=== PATIENT | female | born 1940 | race Caucasian/White ===

== ENCOUNTER → 2016-10-09 | Outpatient (CLI) | payer OTHER, MEDICAID | LOC: FIMAGING 11:41 | PROVIDERS: ATTEND Family Medicine | DX: M50.321 Other cervical disc degeneration at C4-C5 level (principal); M50.023 Cervical disc disorder at C6-C7 level with myelopathy; M50.022 Cervical disc disorder at C5-C6 level with myelopathy ==

== ENCOUNTER → 2017-01-15 | Outpatient (CLI) | payer OTHER, MEDICAID | LOC: FIMAGING 09:06 | PROVIDERS: ATTEND Neurological Surgery | DX: M50.30 Other cervical disc degeneration, unspecified cervical region (principal) ==

== ENCOUNTER 2018-07-31 17:25 | Emergency (ER) | payer OTHER, MEDICAID ==
[2018-07-31] MEDS ORDERED: PROMETHAZINE HCL 25 MG/ML INJ IVP ONE (17:46)
[2018-07-31] MEDS ORDERED: NS 1,000 ML IV ONE ×2 (17:46→19:08)
[2018-07-31] MEDS ORDERED: PROMETHAZINE HCL 25 MG/ML INJ ONE (17:47)
--- NOTE | 2018-07-31 17:49 | EDPHY ---
H & P Stated Complaint: N/V/D since 2pm today. Time Seen by Provider: 07/31/18 17:37 HPI/ROS: CHIEF COMPLAINT: Nausea vomiting and diarrhea HISTORY OF PRESENT ILLNESS: Patient is a 77-year-old female who began having nausea vomiting and diarrhea around 2:00 a.m. This afternoon. She states that she felt well prior to that other than tired. She states that she has vomited 3 times and had 2 episodes of loose stool. None of them have been bloody. No fever. No history of abdominal surgery. She denies chest pain or shortness of breath. She denies significant abdominal pain or radiation. Very symptoms. No vaginal symptoms. Severity: Severe Modifying factors: No improvement with Zofran by EMS. REVIEW OF SYSTEMS: Constitutional: denies: chills, fever, recent illness, recent injury EENTM: denies: blurred vision, double vision, nose congestion Respiratory: denies: cough, shortness of breath Cardiac: denies: chest pain, irregular heart rate, lightheadedness, palpitations Gastrointestinal/Abdominal: See HPI Genitourinary: denies: dysuria, frequency, hematuria, pain Musculoskeletal: denies: joint pain, muscle pain Skin: denies: lesions, rash, jaundice, bruising Neurological: denies: headache, numbness, paresthesia, tingling, dizziness, weakness Hematologic/Lymphatic: denies: blood clots, easy bleeding, easy bruising Immunologic/allergic: denies: HIV/AIDS, transplant 10 systems reviewed and negative except as noted EXAM: GENERAL: Well-appearing, well-nourished and in no acute distress. HEAD: Atraumatic, normocephalic. EYES: Pupils equal round and reactive to light, extraocular movements intact, sclera anicteric, conjunctiva are normal. ENT: TMs normal, nares patent, oropharynx clear without exudates. Dry mucous membranes. NECK: Normal range of motion, supple without lymphadenopathy or JVD. LUNGS: Breath sounds clear to auscultation bilaterally and equal. No wheezes rales or rhonchi. HEART: Regular rate and rhythm without murmurs, rubs or gallops. ABDOMEN: Mild epigastric tenderness, palpable pulsatile aorta. No right upper quadrant or right lower quadrant tenderness. BACK: No CVA tenderness, no spinal tenderness, step-offs or deformities EXTREMITIES: Normal range of motion, no pitting or edema. No clubbing or cyanosis. NEUROLOGICAL: Cranial nerves II through XII grossly intact. Normal speech, normal gait. 5/5 strength, normal movement in all extremities, normal sensation , normal reflexes PSYCH: Normal mood, normal affect. SKIN: Warm, dry, normal turgor, no visible rashes or lesions. Source: Patient Exam Limitations: No limitations - Personal History Current Tetanus Diphtheria and Acellular Pertussis (TDAP): Unsure - Medical/Surgical History Hx Asthma: No Hx Chronic Respiratory Disease: No Hx Diabetes: No Hx Cardiac Disease: No Hx Renal Disease: No Hx Cirrhosis: No Hx Alcoholism: No Hx HIV/AIDS: No Hx Splenectomy or Spleen Trauma: No Other PMH: THYROID, HTN, STENOSIS, vertigo -- 2x per year - Family History Significant Family History: No pertinent family hx - Social History Smoking Status: Former smoker Alcohol Use: None Constitutional: Initial Vital Signs Temperature (C) 36.2 C 07/31/18 17:27 Heart Rate 56 L 07/31/18 17:27 Respiratory Rate 16 07/31/18 17:27 Blood Pressure 129/70 H 07/31/18 17:27 O2 Sat (%) 97 07/31/18 17:27 O2 Delivery Mode Room Air O2 (L/minute) 2 Allergies/Adverse Reactions: No Known Allergies Allergy (Unverified 02/04/14 23:17) Home Medications: Medication Instructions Recorded Levothyroxine [Synthroid 112 mcg 112 mcg PO DAILY06 06/28/10 (*)] amLODIPine BESYLATE [Norvasc 5 mg 5 mg PO BID 06/28/10 (*)] Herbals/Supplements -Info Only 1 ea PO DAILY 02/05/14 [place]-3 Fatty Acids [Fish Oil 1000 1,000 mg PO DAILY 02/05/14 mg (*)] Tears/Hypromellose [Natural 1 - 2 drops EACHEYE TID PRN 10/19/14 Balance] Meclizine HCl [Meclizine HCl 25 mg 25 mg PO BID #30 tab 10/20/14 (RX,OTC)] Promethazine HCl [Phenergan 25mg 25 mg PO Q6-8PRN PRN #20 tab 07/31/18 (RX)] Medical Decision Making - Diagnostics EKG Interpretation: An EKG obtained and was read and documented in trace view. Please see trace view for full reading and report. Sinus rhythm, no acute ischemic changes Imaging Results: Imaging Impressions Abdomen CT 07/31/18 17:46 Impression: 1. No significant abnormality within the abdomen and pelvis 2. No CT evidence of appendicitis, abscess or bowel obstruction. 3. Degenerative changes mid to lower lumbar spine. 4. Stable of small. 4. Stable central mesenteric nodes lower abdomen to upper pelvis. These are nonspecific. Findings discussed with Teto Curtis M.D. at 18:46 hour, 07/31/2018. Imaging: Discussed imaging studies w/ call center analyst Radiologist ED Course/Re-evaluation: Because it could palpate the patient's aorta I obtained a bedside ultrasound. There is no visible aneurysm. The aorta measures 1.4 cm. 7:00 a.m. the patient is feeling much better. No more nausea. Abdominal exam is benign. She forgot to collect the urine. Will continue to hydrate. Tongue slightly dry. 8:00 p.m. patient is feeling completely better. She is asking for prescription for Phenergan. She is eager to go. She has been drinking. She has been ambulating without difficulty. Her friend will drive her home. Abdominal exam remains benign. Differential Diagnosis: Partial list of the Differential diagnosis considered include but were not limited to; gastritis, biliary disease, aneurysm and although unlikely based on the history and physical exam, I also considered dissection, ischemia, volvulus, diverticulitis, peptic ulcer disease, acute coronary disease. - Data Points Laboratory Results: Laboratory Results 07/31/18 17:29 07/31/18 17:29 07/31/18 07/31/18 07/31/18 19:30 18:10 17:57 WBC RBC Hgb Hct MCV MCH MCHC RDW Plt Count MPV Neut % (Auto) Lymph % (Auto) Braxton % (Auto) Eos % (Auto) Baso % (Auto) Nucleat RBC Rel Count Absolute Neuts (auto) Absolute Lymphs (auto) Absolute Monos (auto) Absolute Eos (auto) Absolute Basos (auto) Absolute Nucleated RBC Immature Gran % Immature Gran # PT INR APTT VBG Lactic Acid 1.5 mmol/L mmol/L (0.7-2.1) Sodium Potassium Chloride Carbon Dioxide Anion Gap BUN Creatinine Estimated GFR Glucose Calcium Total Bilirubin Conjugated Bilirubin Unconjugated Bilirubin AST ALT Alkaline Phosphatase POC Troponin I 0.01 ng/mL ng/mL (0.00-0.08) Total Protein Albumin Lipase Urine Color COLORLESS Urine Appearance CLEAR Urine pH 9.0 H (5.0-7.5) Ur Specific [place] 1.015 (1.002-1.030) Urine Protein NEGATIVE (NEGATIVE) Urine Ketones NEGATIVE (NEGATIVE) Urine Blood NEGATIVE (NEGATIVE) Urine Nitrate NEGATIVE (NEGATIVE) Urine Bilirubin NEGATIVE (NEGATIVE) Urine Urobilinogen NEGATIVE EU EU (0.2-1.0) Ur Leukocyte Esterase NEGATIVE (NEGATIVE) Urine RBC 1-3 /hpf /hpf (0-3) Urine WBC 1-3 /hpf /hpf (0-3) Ur Epithelial Cells TRACE /lpf /lpf (NONE-1+) Urine Glucose NEGATIVE (NEGATIVE) 07/31/18 07/31/18 07/31/18 17:29 17:29 17:29 WBC 9.24 10^3/uL 10^3/uL (3.80-9.50) RBC 5.00 10^6/uL 10^6/uL (4.18-5.33) Hgb 15.4 g/dL g/dL (12.6-16.3) Hct 45.8 % % (38.0-47.0) MCV 91.6 fL fL (81.5-99.8) MCH 30.8 pg pg (27.9-34.1) MCHC 33.6 g/dL g/dL (32.4-36.7) RDW 13.5 % % (11.5-15.2) Plt Count 183 10^3/uL 10^3/uL (150-400) MPV 13.1 fL H fL (8.7-11.7) Neut % (Auto) 70.0 % % (39.3-74.2) Lymph % (Auto) 22.6 % % (15.0-45.0) Braxton % (Auto) 5.4 % % (4.5-13.0) Eos % (Auto) 1.3 % % (0.6-7.6) Baso % (Auto) 0.5 % % (0.3-1.7) Nucleat RBC Rel Count 0.0 % % (0.0-0.2) Absolute Neuts (auto) 6.46 10^3/uL 10^3/uL (1.70-6.50) Absolute Lymphs (auto) 2.09 10^3/uL 10^3/uL (1.00-3.00) Absolute Monos (auto) 0.50 10^3/uL 10^3/uL (0.30-0.80) Absolute Eos (auto) 0.12 10^3/uL 10^3/uL (0.03-0.40) Absolute Basos (auto) 0.05 10^3/uL 10^3/uL (0.02-0.10) Absolute Nucleated RBC 0.00 10^3/uL 10^3/uL (0-0.01) Immature Gran % 0.2 % % (0.0-1.1) Immature Gran # 0.02 10^3/uL 10^3/uL (0.00-0.10) PT 12.6 SEC SEC (12.0-15.0) INR 0.92 (0.83-1.16) APTT 27.5 SEC SEC (23.0-38.0) VBG Lactic Acid Sodium 139 mEq/L mEq/L (135-145) Potassium 3.4 mEq/L L mEq/L (3.5-5.2) Chloride 104 mEq/L mEq/L (97-110) Carbon Dioxide 26 mEq/l mEq/l (22-31) Anion Gap 9 mEq/L mEq/L (6-14) BUN 17 mg/dL mg/dL (7-23) Creatinine 0.8 mg/dL mg/dL (0.6-1.0) Estimated GFR > 60 Glucose 154 mg/dL H mg/dL (70-100) Calcium 9.4 mg/dL mg/dL (8.5-10.4) Total Bilirubin 0.5 mg/dL mg/dL (0.1-1.4) Conjugated Bilirubin 0.3 mg/dL mg/dL (0.0-0.5) Unconjugated Bilirubin 0.2 mg/dL mg/dL (0.0-1.1) AST 29 IU/L IU/L (14-46) ALT 30 IU/L IU/L (9-52) Alkaline Phosphatase 76 IU/L IU/L (38-126) POC Troponin I Total Protein 7.0 g/dL g/dL (6.3-8.2) Albumin 4.4 g/dL g/dL (3.5-5.0) Lipase 159 IU/L IU/L (23-300) Urine Color Urine Appearance Urine pH Ur Specific [place] Urine Protein Urine Ketones Urine Blood Urine Nitrate Urine Bilirubin Urine Urobilinogen Ur Leukocyte Esterase Urine RBC Urine WBC Ur Epithelial Cells Urine Glucose Medications Given: Discontinued Medications Sodium Chloride (Ns) 1,000 mls @ 0 mls/hr IV EDNOW ONE; Wide Open PRN Reason: Protocol Stop: 07/31/18 17:47 Last Admin: 07/31/18 17:48 Dose: 1,000 mls Sodium Chloride (Ns) 1,000 mls @ 0 mls/hr IV EDNOW ONE; Wide Open PRN Reason: Protocol Stop: 07/31/18 19:09 Last Admin: 07/31/18 19:14 Dose: 1,000 mls Promethazine HCl (Phenergan) 12.5 mg IVP EDNOW ONE Stop: 07/31/18 17:47 Last Admin: 07/31/18 17:49 Dose: 12.5 mg Promethazine HCl (Phenergan 25 Mg Prepack #4) 1 btl TAKEHOME EDNOW ONE Stop: 07/31/18 20:13 Last Admin: 07/31/18 20:29 Dose: 1 btl Point of Care Test Results: Chemistry 07/31/18 17:57 POC Troponin I 0.01 ng/mL ng/mL (0.00-0.08) Departure - Departure Disposition: Home, Routine, Self-Care Clinical Impression: Acute gastroenteritis Condition: Fair Instructions: Promethazine (By mouth), Gastroenteritis (ED) Referrals: Patient,NotPresent [Unknown] - As per Instructions Prescriptions: Promethazine HCl [Phenergan 25mg (RX)] 25 mg PO Q6-8PRN PRN #20 tab PRN Reason: Nausea/Vomiting, Use 2nd
[2018-07-31] MEDS ORDERED: IOPAMIDOL (ISOVUE-300) 100 ML BTL ONE (17:50)
--- NOTE | 2018-07-31 17:58 | CPEKG ---
Test Reason : OPEN Blood Pressure : / mmHG Vent. Rate : 052 BPM Atrial Rate : 052 BPM P-R Int : 185 ms QRS Dur : 092 ms QT Int : 510 ms P-R-T Axes : 074 078 075 degrees QTc Int : 475 ms Sinus rhythm Borderline T abnormalities, anterior leads Unchanged from previous Confirmed by Michael Mohamud ([id number]) on 07/31/2018 5:58:35 PM Referred By: MICHAEL MOHAMUD Confirmed By:Michael Mohamud
[2018-07-31 18:15] LABS: INR 0.92 (0.83-1.16); PROTIME(PATIENT) 12.6 SEC (12.0-15.0)
[2018-07-31 18:20] LABS: PLATELET COUNT 183 10^3/uL (150-400)
[2018-07-31] MEDS ORDERED: PROMETHAZINE 25 MG PREPACK #4 BTL TAKEHOME ONE (20:12)
[2018-07-31 20:34] VITALS: BP 147/76
== END 2018-07-31 20:36 | disposition home or self-care (01) ==
LOC: EDUNIT#
DX: K52.9 Noninfective gastroenteritis and colitis, unspecified (principal); E86.9 Volume depletion, unspecified; I10 Essential (primary) hypertension; Z87.891 Personal history of nicotine dependence
CPT/HCPCS: 74177; 76775; 93005; 96361; 96374; 99285; J2550; Q9967; 84484-ER

== ENCOUNTER → 2018-08-20 | Outpatient (CLI) | payer OTHER, MEDICAID | LOC: BHFA 09:30 | PROVIDERS: ATTEND Internal Medicine Cardiovascular Disease | DX: R07.9 Chest pain, unspecified (principal); I10 Essential (primary) hypertension | CPT/HCPCS: 78452; 93017; A9500 ==

== ENCOUNTER 2018-11-01 06:34 | Observation (INO) | payer OTHER, MEDICAID ==
[2018-11-01] MEDS ORDERED: NS 1,000 ML IV ONE ×2 (06:55→08:32)
[2018-11-01] MEDS ORDERED: HYDROmorphONE/DILAUDID 2 MG/ML INJ IVP ONE (06:55)
[2018-11-01] MEDS ORDERED: METOCLOPRAMIDE 10 MG/2 ML VIAL IVP ONE (06:55)
--- NOTE | 2018-11-01 06:58 | EDPHY ---
H & P Stated Complaint: N/V/D, abd pain Time Seen by Provider: 11/01/18 06:50 HPI/ROS: CHIEF COMPLAINT: Nausea vomiting diarrhea HISTORY OF PRESENT ILLNESS: Patient is a 78-year-old healthy female who comes to the emergency department complaining of nausea vomiting and diarrhea that began in the middle of the night. She has had several episodes of vomiting and diarrhea. All nonbloody. No fever. She complains of cramping but denies pain. No history of abdominal surgery. She denies chest pain or shortness of breath. No diaphoresis. No sick contacts. She was given Zofran in route and does not feel any better. Severity: Moderate Modifying factors: None REVIEW OF SYSTEMS: Constitutional: denies: chills, fever, recent illness, recent injury EENTM: denies: blurred vision, double vision, nose congestion Respiratory: denies: cough, shortness of breath Cardiac: denies: chest pain, irregular heart rate, lightheadedness, palpitations Gastrointestinal/Abdominal: See HPI Genitourinary: denies: dysuria, frequency, hematuria, pain Musculoskeletal: denies: joint pain, muscle pain Skin: denies: lesions, rash, jaundice, bruising Neurological: denies: headache, numbness, paresthesia, tingling, dizziness, weakness Hematologic/Lymphatic: denies: blood clots, easy bleeding, easy bruising Immunologic/allergic: denies: HIV/AIDS, transplant 10 systems reviewed and negative except as noted EXAM: GENERAL: Well nourished, Moderate distress. HEAD: Atraumatic, normocephalic. EYES: Pupils equal round and reactive to light, extraocular movements intact, sclera anicteric, conjunctiva are normal. ENT: TMs normal, nares patent, oropharynx clear without exudates. Slightly dry mucous membranes. NECK: Normal range of motion, supple without lymphadenopathy or JVD. LUNGS: Breath sounds clear to auscultation bilaterally and equal. No wheezes rales or rhonchi. HEART: Regular rate and rhythm without murmurs, rubs or gallops. ABDOMEN: Soft, nontender, normoactive bowel sounds. No guarding, no rebound. No masses appreciated. BACK: No CVA tenderness, no spinal tenderness, step-offs or deformities EXTREMITIES: Normal range of motion, no pitting or edema. No clubbing or cyanosis. NEUROLOGICAL: Cranial nerves II through XII grossly intact. Normal speech, normal gait. 5/5 strength, normal movement in all extremities, normal sensation , normal reflexes PSYCH: Normal mood, normal affect. SKIN: Warm, dry, normal turgor, no visible rashes or lesions. Source: Patient Exam Limitations: No limitations - Personal History Current Tetanus/Diphtheria Vaccine: Yes Tetanus Vaccine Date: < 10 years - Medical/Surgical History Hx Asthma: No Hx Chronic Respiratory Disease: No Hx Diabetes: No Hx Cardiac Disease: No Hx Renal Disease: No Hx Cirrhosis: No Hx Alcoholism: No Hx HIV/AIDS: No Hx Splenectomy or Spleen Trauma: No Other PMH: THYROID, HTN, cervical stenosis, intermittent vertigo - Family History Significant Family History: No pertinent family hx - Social History Smoking Status: Former smoker Alcohol Use: Sober Drug Use: None Constitutional: Initial Vital Signs Heart Rate 55 L 11/01/18 06:41 Respiratory Rate 18 11/01/18 06:41 Blood Pressure 144/70 H 11/01/18 06:41 O2 Sat (%) 97 11/01/18 06:41 O2 Delivery Mode Room Air O2 (L/minute) 1 Allergies/Adverse Reactions: gluten Allergy (Verified 11/01/18 13:57) Milk Containing Products [dairy] Allergy (Verified 11/01/18 13:57) sugar Allergy (Uncoded 11/01/18 13:57) Home Medications: Medication Instructions Recorded Levothyroxine [Synthroid 112 mcg 112 mcg PO DAILY AT 9PM 06/28/10 (*)] amLODIPine BESYLATE [Norvasc 5 mg 5 mg PO BID 06/28/10 (*)] Herbals/Supplements -Info Only 1 ea PO DAILY 02/05/14 [place]-3 Fatty Acids [Fish Oil 1000 1,000 mg PO DAILY 02/05/14 mg (*)] Cyanocobalamin [Vitamin B12 (*)] 1,000 mcg PO DAILY 11/01/18 Dicyclomine [Bentyl 20 MG (*)] 20 mg PO QID PRN 11/01/18 Meclizine HCl [Meclizine HCl 25 mg 25 mg PO BID PRN 11/01/18 (RX,OTC)] Moxifloxacin/Ketorolac/Prednis 1 drop EACHEYE QID 11/01/18 Ondansetron Odt [Zofran Odt 4 mg 4 mg PO Q4 PRN #20 tab 11/02/18 (*)] Medical Decision Making - Diagnostics Imaging: Discussed imaging studies w/ manager call center Radiologist ED Course/Re-evaluation: 8:30 a.m. patient's lab work and imaging is reassuring. She states that her stomach feels completely better but she feels weak. Her mucous membranes slightly dry. Will continue to hydrate and observe. 10:20 a.m. patient has received 2 L of fluid. She has been up to the bathroom. She still feels weak and unsteady. Will admit for further treatment. 10:44 a.m. discussed the case with Dr. Cortez who will admit to Dr. Rey Differential Diagnosis: Partial list of the Differential diagnosis considered include but were not limited to; gastroenteritis, dehydration, ischemia, obstruction , sepsis and although unlikely based on the history and physical exam, I also considered dissection, urinary tract infection, acute coronary disease. - Data Points Laboratory Results: Laboratory Results 11/01/18 06:30 11/01/18 06:30 Medications Given: Discontinued Medications Acetaminophen (Tylenol) 650 mg PO Q4HRS PRN PRN Reason: Pain, Mild/Fever, Can Take PO Stop: 04/30/19 11:17 Last Admin: 11/02/18 09:12 Dose: 650 mg Amlodipine Besylate (Norvasc) 5 mg PO BID JAMARCUS Stop: 04/30/19 20:59 Last Admin: 11/02/18 09:13 Dose: 5 mg Calcium Carbonate (Tums) 500 mg PO Q4H PRN PRN Reason: INDIGESTION Stop: 04/30/19 20:00 Last Admin: 11/01/18 20:13 Dose: 500 mg Hydromorphone HCl (Dilaudid) 0.5 mg IVP EDNOW ONE Stop: 11/01/18 06:56 Last Admin: 11/01/18 07:08 Dose: 0.5 mg Sodium Chloride (Ns) 1,000 mls @ 0 mls/hr IV EDNOW ONE; Wide Open PRN Reason: Protocol Stop: 11/01/18 06:56 Last Admin: 11/01/18 06:58 Dose: 1,000 mls Sodium Chloride (Ns) 1,000 mls @ 0 mls/hr IV EDNOW ONE; Wide Open PRN Reason: Protocol Stop: 11/01/18 08:33 Last Admin: 11/01/18 08:52 Dose: 1,000 mls Sodium Chloride (Ns) 1,000 mls @ 125 mls/hr IV CONT JAMARCUS Stop: 04/30/19 11:29 Last Admin: 11/01/18 13:05 Dose: 1,000 mls Potassium Chloride/Sodium Chloride (Ns W/ 20 Kcl/L) 1,000 mls @ 125 mls/hr IV CONT JAMARCUS Stop: 04/30/19 14:44 Last Admin: 11/02/18 07:35 Dose: 1,000 mls Levothyroxine Sodium (Synthroid) 112 mcg PO DAILY21 [facility] Stop: 04/30/19 20:59 Last Admin: 11/01/18 22:00 Dose: 112 mcg Metoclopramide HCl (Reglan Injection) 10 mg IVP EDNOW ONE Stop: 11/01/18 06:56 Last Admin: 11/01/18 07:08 Dose: 10 mg Miscellaneous Medication (Moxifloxacin/Ketorolac/Prednis) 1 drop EACHEYE QID JAMARCUS Stop: 04/30/19 20:59 Last Admin: 11/02/18 09:59 Dose: Not Given Oxycodone HCl (Oxycodone Ir) 5 - 10 mg PO Q3HRS PRN PRN Reason: Pain, Severe Able to Take PO Stop: 11/11/18 11:17 Last Admin: 11/01/18 22:00 Dose: 5 mg Promethazine HCl (Phenergan) 12.5 mg IVP ONCE ONE Stop: 11/01/18 10:24 Last Admin: 11/01/18 10:36 Dose: 12.5 mg Vitamin B Complex (Vitamin B12) 1,000 mcg PO DAILY [facility] Stop: 05/01/19 08:59 Last Admin: 11/02/18 09:13 Dose: 1,000 mcg Departure - Departure Disposition: [facility] Inpatient Acute Clinical Impression: Acute gastroenteritis, Dehydration Condition: Good
[2018-11-01] MEDS ORDERED: IOPAMIDOL (ISOVUE-300) 100 ML BTL ONE (07:27)
[2018-11-01 07:28] LABS: PLATELET COUNT 200 10^3/uL (150-400)
[2018-11-01] MEDS ORDERED: PROMETHAZINE HCL 25 MG/ML INJ IVP ONE (10:23)
[2018-11-01] MEDS ORDERED: HYDROmorphONE/DILAUDID 1 MG/ML INJ IVP PRN (11:18)
[2018-11-01] MEDS ORDERED: ACETAMINOPHEN 325 MG TAB PO PRN (11:18)
[2018-11-01] MEDS ORDERED: LORazepam 2 MG/ML INJ IVP PRN (11:18)
[2018-11-01] MEDS ORDERED: ONDANSETRON 4 MG/2 ML VIAL IVP PRN (11:18)
[2018-11-01] MEDS ORDERED: ONDANSETRON DISINTEGRATING 4 MG TAB PO PRN (11:18)
[2018-11-01] MEDS ORDERED: NS 1,000 ML IV SCH (11:30)
--- NOTE | 2018-11-01 11:31 | PDGENHP ---
History and Physical - Chief Complaint nausea, vomiting - History of Present Illness 78yo F with history of htn, hypothyroidism, bppv presents with abrupt onset nausea and vomiting in the middle of the night. This is associated with epigastric pain and dizziness. She has been having 1-2 days of looser stools than normal but no dasha diarrhea. She has not noticed any blood in vomit or stools. She was having cold sweats but no fevers. She currently feels very weak. No urinary symptoms. Her dizziness isn't consistent with prior episodes of vertigo. She did take some zofran and meclizine at home that seemed to help some. She is currently feeling quite poorly. In the ED, she was noted to be dehydrated and felt too weak to go home. She is being admitted for further monitoring and evaluation. History Information - Allergies/Home Medication List Allergies/Adverse Reactions: gluten Allergy (Verified 11/01/18 13:57) Milk Containing Products [dairy] Allergy (Verified 11/01/18 13:57) sugar Allergy (Uncoded 11/01/18 13:57) Home Medications: Levothyroxine [Synthroid 112 mcg (*)] 112 mcg PO DAILY06 06/28/10 [Last Taken ] amLODIPine BESYLATE [Norvasc 5 mg (*)] 5 mg PO BID 06/28/10 [Last Taken 21:00] Herbals/Supplements -Info Only 1 ea PO DAILY 02/05/14 [Last Taken 02/04/14] [place]-3 Fatty Acids [Fish Oil 1000 mg (*)] 1,000 mg PO DAILY 02/05/14 [Last Taken 10/31/18] Cyanocobalamin [Vitamin B12 (*)] 1,000 mcg PO DAILY 11/01/18 [Last Taken ] Dicyclomine [Bentyl 20 MG (*)] 20 mg PO QID PRN 11/01/18 [Last Taken 11/01/18] Meclizine HCl [Meclizine HCl 25 mg (RX,OTC)] 25 mg PO BID PRN 11/01/18 [Last Taken 11/01/18] Moxifloxacin/Ketorolac/Prednis 1 drop EACHEYE QID 11/01/18 [Last Taken 10/31/18] I have personally reviewed and updated: family history, medical history, social history, surgical history - Past Medical History Additional medical history: HTN, hypothyroidism, BPPV, chronic neck/back pain - Surgical History Additional surgical history: cervical spine surgery - Family History Positive for: non-pertinent - Social History Smoking Status: Former smoker Alcohol Use: Rarely Drug Use: None Additional social history: Lives alone in [place]. Son last year. 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 Review of Systems Review of Systems: ROS: 10pt was reviewed & negative except for what was stated in HPI & below Physical Exam Physical Exam: Temp Pulse Resp BP Pulse Ox 36.8 C 63 17 142/75 H 92 11/01/18 10:18 11/01/18 10:18 11/01/18 10:18 11/01/18 10:18 11/01/18 10:18 Constitutional: no apparent distress, uncomfortable Eyes: PERRL, anicteric sclera, EOMI Ears, Nose, Mouth, Throat: dry mucous membranes Cardiovascular: regular rate and rhythym, no murmur, rub, or gallop, No edema Respiratory: no respiratory distress, no rales or rhonchi, clear to auscultation Gastrointestinal: normoactive bowel sounds, soft, non-tender abdomen, no palpable masses, No distension Genitourinary: no bladder fullness, no bladder tenderness Skin: warm, normal color, no rashes or abrasions, no fluctuance, no induration, No mottled Musculoskeletal: generalized weakness Neurologic: AAOx3 Psychiatric: interacting appropriately Lab Data & Imaging Review 11/01/18 06:30 11/01/18 06:30 WBC 7.91 10^3/uL (3.80-9.50) 11/01/18 06:30 RBC 5.29 10^6/uL (4.18-5.33) 11/01/18 06:30 Hgb 16.0 g/dL (12.6-16.3) 11/01/18 06:30 Hct 47.7 % (38.0-47.0) H 11/01/18 06:30 MCV 90.2 fL (81.5-99.8) 11/01/18 06:30 MCH 30.2 pg (27.9-34.1) 11/01/18 06:30 MCHC 33.5 g/dL (32.4-36.7) 11/01/18 06:30 RDW 13.2 % (11.5-15.2) 11/01/18 06:30 Plt Count 200 10^3/uL (150-400) 11/01/18 06:30 MPV 12.9 fL (8.7-11.7) H 11/01/18 06:30 Neut % (Auto) 63.1 % (39.3-74.2) 11/01/18 06:30 Lymph % (Auto) 26.7 % (15.0-45.0) 11/01/18 06:30 [place] % (Auto) 6.8 % (4.5-13.0) 11/01/18 06:30 Eos % (Auto) 2.4 % (0.6-7.6) 11/01/18 06:30 Baso % (Auto) 0.6 % (0.3-1.7) 11/01/18 06:30 Nucleat RBC Rel Count 0.0 % (0.0-0.2) 11/01/18 06:30 Absolute Neuts (auto) 4.99 10^3/uL (1.70-6.50) 11/01/18 06:30 Absolute Lymphs (auto) 2.11 10^3/uL (1.00-3.00) 11/01/18 06:30 Absolute Monos (auto) 0.54 10^3/uL (0.30-0.80) 11/01/18 06:30 Absolute Eos (auto) 0.19 10^3/uL (0.03-0.40) 11/01/18 06:30 Absolute Basos (auto) 0.05 10^3/uL (0.02-0.10) 11/01/18 06:30 Absolute Nucleated RBC 0.00 10^3/uL (0-0.01) 11/01/18 06:30 Immature Gran % 0.4 % (0.0-1.1) 11/01/18 06:30 Immature Gran # 0.03 10^3/uL (0.00-0.10) 11/01/18 06:30 Sodium 137 mEq/L (135-145) 11/01/18 06:30 Potassium 3.1 mEq/L (3.5-5.2) L 11/01/18 06:30 Chloride 105 mEq/L (97-110) 11/01/18 06:30 Carbon Dioxide 21 mEq/l (22-31) L 11/01/18 06:30 Anion Gap 11 mEq/L (6-14) 11/01/18 06:30 BUN 20 mg/dL (7-23) 11/01/18 06:30 Creatinine 0.8 mg/dL (0.6-1.0) 11/01/18 06:30 Estimated GFR > 60 11/01/18 06:30 Glucose 198 mg/dL (70-100) H 11/01/18 06:30 Calcium 9.5 mg/dL (8.5-10.4) 11/01/18 06:30 Total Bilirubin 0.4 mg/dL (0.1-1.4) 11/01/18 06:30 Conjugated Bilirubin 0.0 mg/dL (0.0-0.5) 11/01/18 06:30 Unconjugated Bilirubin 0.4 mg/dL (0.0-1.1) 11/01/18 06:30 AST 30 IU/L (14-46) 11/01/18 06:30 ALT 32 IU/L (9-52) 11/01/18 06:30 Alkaline Phosphatase 70 IU/L (38-126) 11/01/18 06:30 Total Protein 7.4 g/dL (6.3-8.2) 11/01/18 06:30 Albumin 4.6 g/dL (3.5-5.0) 11/01/18 06:30 Lipase 176 IU/L (23-300) 11/01/18 06:30 Urine Color PALE YELLOW 11/01/18 10:20 Urine Appearance CLEAR 11/01/18 10:20 Urine pH 6.0 (5.0-7.5) 11/01/18 10:20 Ur Specific [place] 1.032 (1.002-1.030) H 11/01/18 10:20 Urine Protein NEGATIVE (NEGATIVE) 11/01/18 10:20 Urine Ketones TRACE (NEGATIVE) H 11/01/18 10:20 Urine Blood NEGATIVE (NEGATIVE) 11/01/18 10:20 Urine Nitrate NEGATIVE (NEGATIVE) 11/01/18 10:20 Urine Bilirubin NEGATIVE (NEGATIVE) 11/01/18 10:20 Urine Urobilinogen NEGATIVE EU (0.2-1.0) 11/01/18 10:20 Ur Leukocyte Esterase NEGATIVE (NEGATIVE) 11/01/18 10:20 Urine RBC NONE SEEN /hpf (0-3) 11/01/18 10:20 Urine WBC 0-1 /hpf (0-3) 11/01/18 10:20 Ur Epithelial Cells NONE SEEN /lpf (NONE-1+) 11/01/18 10:20 Urine Mucus TRACE /lpf (NONE-1+) 11/01/18 10:20 Urine Glucose 1+ (NEGATIVE) H 11/01/18 10:20 Assessment & Plan Assessment: 78yo F with history of htn, hypothyroidism, bppv presents with abrupt onset nausea and vomiting in the middle of the night. Plan: #Nausea, vomiting: No e/o obstruction on CT. Suspect r/t constipation vs mild enteritis/colitis. She has a benign abdomen. Will treat supportively. - IV fluids, anti-emetics, pain control, bowel regimen - If develops diarrhea, will send for GI PCR #Hypokalemia - Will add potassium to fluids #Generalized weakness: R/t dehydration, no focal deficits - PT/OT #Hypertension: Continue amlodipine. #Bradycardia: Appears sinus. Very mild. This is chronic for her. #H/o BPPV: Presentation not consistent with this. She uses meclizine PRN. #Hypothyroidism: TSH ok. Continue LT4 replacement. #Hyperglycemia: Suspect stress response. No h/o diabetes. Will recheck in AM. #Coronary atherosclerosis: Noted on CT. She had a normal exercise stress with MPI 08/2018. Code: full VTE ppx: low risk, SCDs Dispo: admit under observation
[2018-11-01] MEDS ORDERED: MECLIZINE HCL 25 MG TAB PO PRN (14:37)
[2018-11-01] MEDS: oxyCODONE IR 5 MG TAB PO PRN ×2 (15:14→22:00)
[2018-11-01] MEDS: NS W/ 20 KCl/L 1,000 ML IV SCH ×2 (15:14→23:22)
--- NOTE | 2018-11-01 16:28 | ASMTCMCOM ---
CM Note CM Note Notes: Pt has been admitted with n/v, dehydration, epigastric pain. She lives alone in [place]. Of note her son last year. CM will follow for any d/c needs. D/C plan: TBD Date Signed: 11/01/2018 04:27 PM Electronically Signed By:SARAI Syed
[2018-11-01] MEDS ORDERED: CALCIUM CARBONATE 500 MG CHEWABLE TAB PO PRN (20:01)
[2018-11-01] MEDS: amLODIPine BESYLATE 5 MG TAB PO SCH (20:08)
[2018-11-01] MEDS: PREDNISOLONE OPTH EACHEYE SCH (20:46)
[2018-11-01] MEDS: MOXIFLOXACIN EACHEYE SCH (20:46)
[2018-11-01] MEDS: KETOROLAC EACHEYE SCH (20:46)
[2018-11-01] MEDS ORDERED: LEVOTHYROXINE 112 MCG TAB PO SCH (21:00)
[2018-11-02 07:25] VITALS: BP 132/71
[2018-11-02] MEDS: NS W/ 20 KCl/L 1,000 ML IV SCH (07:35)
--- NOTE | 2018-11-02 08:43 | PDDCSUM ---
Discharge Summary Discharge Summary: Date of Admission: 11/01/2018 Date of Discharge: 11/02/2018 Studies: abdominal CT Discharge Diagnoses: 1. Nausea, vomiting, abdominal pain 2. Constipation 3. Hypokalemia, resolved 4. Hypertension 5. Sinus bradycardia 6. H/o BPPV 7. Hypothyroidism 8. Coronary atherosclerosis (noted on CT, normal exercise stress test w/MPI 2018) Brief Hospital Course: 78yo F with history of htn, hypothyroidism, bppv presented with abrupt onset nausea, vomiting, abdominal cramping pain in the middle of the night. She battles with constipation routinely and had felt constipated recently until she had a few looser stools prior to coming in. CT of the abdomen showed moderate stool in the colon and fecalization of the small bowel without evidence of obstruction. She had a benign abdomen and was not toxic appearing. She was treated conservatively with IV fluids, bowel regimen, and anti-emetics. She symptomatically improved and was passing flatus and tolerating PO at time of discharge. She did not have any diarrhea while hospitalized. We discussed strategies to prevent constipation including increasing fiber in diet, over-the- counter stool softeners/laxatives. Medications: Please refer to EMR for complete list. She was given a prescription for zofran 4mg ODT prn. Follow Up Plan: 1. She has an apopintment with a merchandise appraiser next week Physical Exam: Vitals reviewed, afebrile. ALert and oriented, rrr, lungs clear, abdomen soft and nt, no leg edema, no rashes.
[2018-11-02] MEDS ORDERED: CYANO/VITAMIN B12 1000 MCG TAB PO SCH (09:00)
[2018-11-02] MEDS: amLODIPine BESYLATE 5 MG TAB PO SCH (09:13)
[2018-11-02] MEDS: KETOROLAC EACHEYE SCH (09:59)
[2018-11-02] MEDS: PREDNISOLONE OPTH EACHEYE SCH (09:59)
[2018-11-02] MEDS: MOXIFLOXACIN EACHEYE SCH (09:59)
--- NOTE | 2018-11-02 10:20 | ASMTDCNOTE ---
Case Management Discharge Discharge Order Complete? Answers: Yes Patient to Obtain Answers: via Family Medications Transportation Arranged Answers: Family/Friends Transport will Pick (Date 11/02/2018 12:00 AM & Time) Family Notified Answers: No Discharge Comments Notes: CM visited pt who was in the shower, so discussed pt with RN and PT. Both feel pt is appropriate to dc home independently. No CM needs identified. Date Signed: 11/02/2018 10:19 AM Electronically Signed By:Jyothi Wesley. ROBERTA
--- NOTE | 2018-11-02 10:23 | ASDISCHSUM ---
Discharge Information Plan Status:Home with No Needs Medically Cleared to Leave:11/02/2018 Discharge Date:11/02/2018 CM D/C Disposition:Home, Routine, Self-Care ADT D/C Disposition:Home, Routine, Self-Care Projected Discharge Date:11/02/2018 Transportation at D/C:Family Discharge Delay Reason: Follow-Up Date:11/02/2018 Discharge Slot: Final Diagnosis:gastroenteritis Placement Information Patient Contact Information Contact Name:SHEILA Relationship:Daughter Address: Work Phone: City: [facility] Phone: State/Zip Code: Email: Financial Information Financial Class:Medicare Primary Plan Desc:MEDICARE OUTPATIENT Primary Plan Number:[id number] Secondary Plan Desc:MEDICAID HEALTH [place] Secondary Plan Number:[id number] Assessment Information LACE LACE Length of stay for Answers: Less than 1 day current admission Acuity / Level of Answers: No Care: Did the patient have an inpatient admission? Comorbidities - select Answers: Other Notes: HTN all that apply # of Emergency department Answers: 1-2 visits in the last 6 months Score: 2 Date Signed: 11/02/2018 10:22 AM Electronically Signed By:Jyothi Webb RN [facility] CM Progress Note CM Note CM Note Notes: Pt has been admitted with n/v, dehydration, epigastric pain. She lives alone in [place]. Of note her son last year. CM will follow for any d/c needs. D/C plan: TBD Date Signed: 11/01/2018 04:27 PM Electronically Signed By:SARAI Syed Case Management Discharge Plan Note Case Management Discharge Discharge Order Complete? Answers: Yes Patient to Obtain Answers: via Family Medications Transportation Arranged Answers: Family/Friends Transport will Pick (Date 11/02/2018 12:00 AM & Time) Family Notified Answers: No Discharge Comments Notes: CM visited pt who was in the shower, so discussed pt with RN and PT. Both feel pt is appropriate to dc home independently. No CM needs identified. Date Signed: 11/02/2018 10:19 AM Electronically Signed By:Jyothi Wesley. RN Intervention Information
== END 2018-11-02 11:06 | disposition home or self-care (01) ==
LOC: EDUNIT# → F3E 12:46
PROVIDERS: ADMIT Internal Medicine; ATTEND Internal Medicine
DX: R11.2 Nausea with vomiting, unspecified (principal); R19.7 Diarrhea, unspecified; E86.0 Dehydration; K59.00 Constipation, unspecified; I10 Essential (primary) hypertension; I25.10 Atherosclerotic heart disease of native coronary artery without angina pectoris; E87.6 Hypokalemia
CPT/HCPCS: 74177; 96361; 96374; 96375; 99285; G0378; J1170; J2550; J2765; Q9967